=== PATIENT | male | born 1985 | race Caucasian/White ===

== ENCOUNTER 2017-02-15 23:56 | Emergency (ER) | payer SELFPAY ==
[2017-02-16 00:12] VITALS: TEMP 97.9; O2SAT 96
[2017-02-16] MEDS ORDERED: CHLORHEXIDINE GLUCONATE 4 % 15 ML UD TOP ONE (00:13)
--- NOTE | 2017-02-16 00:24 | RAD ---
Procedure: XR FOOT 3 OR MORE VIEWS Exam Date: 02/16/2017 Ordering Provider: Mary Martinez Clinical Indication: fall injury to right foot Comparison: None FINDINGS: No fracture or dislocation. Articular surfaces of the right foot are normal. No lytic or sclerotic lesions. No radiopaque foreign body. No subcutaneous gas evident. IMPRESSION: 1. No acute fracture or dislocation of the right foot. Electronically signed by: Octaviano Pritchett MD 02/16/2017 12:23 AM CDT
[2017-02-16] MEDS ORDERED: LIDOCAINE 1% W/ EPINEPHRINE 20 ML VIAL INJ ONE (00:26)
[2017-02-16] MEDS ORDERED: NEOMYCIN-BACITRACIN-POLYMYXIN 0.9 GM UD TOP ONE (00:51)
[2017-02-16] MEDS ORDERED: HYDROcodone 5MG/APAP 325MG 1 EA TAB PO ONE (00:52)
[2017-02-16] MEDS ORDERED: HYDROcodone 5MG/APAP 325MG 1 EA TAB ONE (00:52)
--- NOTE | 2017-02-16 00:57 | ED.PDOC ---
History of Present Illness - General Chief Complaint: Laceration Stated Complaint: right foot injury c laceration Time Seen by Provider: 02/16/17 00:26 Source: patient, RN notes reviewed, Vital Signs reviewed Exam Limitations: no limitations - History of Present Illness Initial Comments: Patient comes in with c/o cuts to the top of his foot. Reports he cut his foot on a rock. Timing/Duration: just prior to arrival Severity: mild Location: feet - Dorsum of right foot Improving Factors: nothing Worsening Factors: movement Associated Symptoms: denies symptoms Allergies/Adverse Reactions: Allergies NO KNOWN ALLERGY Allergy (Verified 02/16/17 00:12) Home Medications: Ambulatory Orders NK [NK] 02/16/17 Review of Systems - Review of Systems Constitutional: States: no symptoms reported Respiratory: States: no symptoms reported Cardiology: States: no symptoms reported Musculoskeletal: States: no symptoms reported Skin: States: see HPI Neurological: States: no symptoms reported All other Systems: No Change from Baseline Past Medical History (General) - Patient Medical History Hx Seizures: No Hx Stroke: No Hx Dementia: No Hx Asthma: No Hx of COPD: No Hx Cardiac Disorders: No Hx Congestive Heart Failure: No Hx Pacemaker: No Hx Hypertension: No Hx Thyroid Disease: No Hx Diabetes: No Hx Gastroesophageal Reflux: No Hx Renal Disease: No Hx Cancer: No Hx of HIV: No Hx Hepatitis C: No Hx MRSA: No - Vaccination History Hx Tetanus, Diphtheria Vaccination: Yes - 2 yrs Hx Influenza Vaccination: No Hx Pneumococcal Vaccination: No - Social History Hx Tobacco Use: Yes Hx Chewing Tobacco Use: No Hx Alcohol Use: Yes Hx Substance Use: No Hx Substance Use Treatment: No Hx Depression: No Feels Threatened In Home Enviroment: No Feels Threatened In a Relationship: No Hx Physical Abuse: No Hx Emotional Abuse: No Hx Suspected Abuse: No - Female History Patient : No Family Medical History - Family History Mother Family History: Unknown Physical Exam - Physical Exam General Appearance: Alert, Comfortable, No apparent distress, Well Developed, Well Groomed, Well Hydrated, Well Nourished Cardiovascular/Chest: normal peripheral pulses Respiratory: no respiratory distress Extremity: normal range of motion, normal capillary refill Neurologic: no motor/sensory deficits, alert, normal mood/affect, oriented x 3 Skin Exam: warm/dry, normal color Skin Problem Location: lower extremities - R foot: 3.5cm flap on dorsal aspect of mid foot. 4 small 1cm superficial lacerations over dorsal MTP joints. Comments: Vital Signs 02/16/17 00:05 Temperature 97.9 F Pulse Rate [ 89 monitor] Respiratory 18 Rate Blood Pressure 144/75 [Left Arm] O2 Sat by Pulse 96 Oximetry Procedures - Laceration/Wound Repair Right Dorsal Foot Wound Length (cm): 3.5 - 4 1cm lacerations Wound's Depth, Shape: flap Wound Explored: no foreign body removed Betadine Prep?: No - soaked in saline & hibiclens Anesthesia: Lidocaine w/ Epi Volume Anesthetic (cc's): 1.5 Wound Debrided: minimal Wound Repaired With: sutures, dermabond Suture Size/Type: 4:0 Number of Sutures: 5 - 5 sutures on flap laceration, Dermabond applied over 4 1cm superficial lacerations Layer Closure?: No Sterile Dressing Applied?: Yes Departure - Departure Clinical Impression: Laceration of right foot excluding toes without complication Qualifiers: Encounter type: initial encounter Qualified Code(s): S91.311A - Laceration without foreign body, right foot, initial encounter ICD-10 Supporting Text: 5 lacerations on dorsum of foot. Time of Disposition: 00:59 Disposition: Discharge to Home or Self Care Condition: Good Departure Forms: ED Discharge - Pt. Copy, Patient Portal Self Enrollment Instructions: DI for Laceration Repair -- Simple, DI for Laceration Repair With Dermabond Diet: resume usual diet Activity: increase activity as tolerated Referrals: Sasha Oro NP [Primary Care Provider] - 1-2 Weeks Home Medications: Ambulatory Orders NK [NK] 02/16/17 Additional Instructions: Keep wounds covered and protected while in work boots Follow up in 7-10 days for suture removal. Apply antibiotic ointment twice daily - only to sutured wounds
[2017-02-16 01:06] VITALS: BP 132/72
[2017-02-16] MEDS ORDERED: NEOMYCIN-BACITRACIN-POLYMYXIN 0.9 GM UD TOP SCH (09:00)
== END 2017-02-16 01:06 | disposition home or self-care (01) ==
LOC: ER 23:56
DX: S91.311A Laceration without foreign body, right foot, initial encounter (principal); Z87.891 Personal history of nicotine dependence; W45.8XXA Other foreign body or object entering through skin, initial encounter; Y92.9 Unspecified place or not applicable

== ENCOUNTER 2020-04-26 23:27 | Emergency (ER) | payer SELFPAY ==
[2020-04-26] MEDS ORDERED: SODIUM CHLORIDE 0.9% 1000ML 1,000 ML IVS ONE (23:46)
[2020-04-26] MEDS ORDERED: MORPHINE SULFATE INJ 10 MG/ML VIAL IV ONE (23:46)
--- NOTE | 2020-04-26 23:49 | ED.PDOC ---
History of Present Illness - General Chief Complaint: Abdominal Pain Stated Complaint: lower ab pain/distended onset 3.5-4HR Time Seen by Provider: 04/26/20 23:28 Information Source: patient, RN notes reviewed, Vital Signs reviewed Exam Limitations: no limitations - History of Present Illness Initial Comments: 34 yo otherwise healthy male comes in with 4 hours of periumbilical pain that radiates to his back. no n/v/d. no black or bloody bm. pain constant. feels bloated. Review of Systems - Review of Systems Constitutional: Denies: chills, fever EENTM: Denies: blurred vision, throat pain, mouth pain Respiratory: Denies: cough, short of breath, stridor Cardiology: Denies: chest pain, palpitations, syncope Gastrointestinal/Abdominal: States: abdominal pain. Denies: constipation, diarrhea, nausea, vomiting Genitourinary: Denies: dysuria, frequency Musculoskeletal: States: back pain. Denies: joint swelling, muscle pain Neurological: Denies: headache, numbness, paresthesia, seizure Endocrine: Denies: increased urine, unexplained weight gain, unexplained weight loss Hematologic/Lymphatic: Denies: easy bleeding, easy bruising Past Medical History (General) - Patient Medical History Hx Seizures: No Hx Stroke: No Hx Dementia: No Hx Asthma: No Hx of COPD: No Hx Cardiac Disorders: No Hx Congestive Heart Failure: No Hx Pacemaker: No Hx Hypertension: No Hx Thyroid Disease: No Hx Diabetes: No Hx Gastroesophageal Reflux: No Hx Renal Disease: No Hx Cancer: No Hx of HIV: No Hx Hepatitis C: No Hx MRSA: No Surgical History: no surgical history - Vaccination History Hx Tetanus, Diphtheria Vaccination: Yes Hx Influenza Vaccination: No Hx Pneumococcal Vaccination: No - Social History Hx Tobacco Use: Yes Hx Chewing Tobacco Use: No Hx Alcohol Use: Yes Hx Substance Use: No Hx Substance Use Treatment: No Hx Depression: No Hx Physical Abuse: No Hx Emotional Abuse: No Hx Suspected Abuse: No - Female History Patient : No Family Medical History - Family History Mother Family History: Unknown Physical Exam - Physical Exam General Appearance: Alert, Comfortable, No apparent distress, Well Developed, Well Groomed, Well Hydrated, Well Nourished Eyes, Ears, Nose, Throat Exam: PERRL/EOMI, normal ENT inspection Neck: non-tender, full range of motion, supple, normal inspection Respiratory: chest non-tender, lungs clear, normal breath sounds, no respiratory distress, no accessory muscle use Cardiovascular/Chest: normal peripheral pulses, no edema, no gallop, no JVD, no murmur, tachycardia Peripheral Pulses: 2+ Gastrointestinal/Abdominal: normal bowel sounds, non tender, soft, no organomegaly, no pulsatile mass Rectal Exam: deferred Back Exam: normal inspection, no CVA tenderness, no vertebral tenderness Extremity: normal range of motion, non-tender, normal inspection, no pedal edema, no calf tenderness, normal capillary refill Neurologic: applications consultant II-XII nml as tested, no motor/sensory deficits, alert, normal mood/affect, oriented x 3 Skin Exam: normal color, warm/dry Progress - Progress Progress: 04/27/20 00:54 partial ddx: appendicitis, gastroenteritis, pancreatitis, stone, uti, gallstones. patient given IVF, toradol and mylanta. Also given morphine. Pain improved. The data reviewed when caring for this patient included: nurse notes, prior records, etc. The history and assessments from nurses notes were reviewed and considered, and the patient's home medication list was also reviewed and considered. My assessment and the results of testing completed here in the ED were discussed with the patient/family. All questions were answered, and they express understanding of my assessment and the plan. They have been instructed to return if their symptoms worsen, and have been asked to follow up with their primary care physician to recheck today's presenting complaint. Strict abdominal return precautions given. Alexus Gonzalez DO #[id number] Departure - Departure Clinical Impression: Nephrolithiasis Abdominal pain Qualifiers: Abdominal location: periumbilical Qualified Code(s): R10.33 - Periumbilical pain Time of Disposition: 00:49 Disposition: Discharge to Home or Self Care Departure Forms: ED Discharge - Pt. Copy, Patient Portal Self Enrollment Instructions: DI for Abdominal Pain-Adult, Kidney Stones in Adults, Acute Abdomen (Belly Pain), Adult (DC) Activity: increase activity as tolerated Referrals: Sasha Oro NP [Primary Care Provider] - 1-5 Days Home Medications: Ambulatory Orders NK 02/16/17
[2020-04-27 00:34] VITALS: O2SAT 100
--- NOTE | 2020-04-27 00:47 | CT ---
EXAM DESCRIPTION: Abdomen/Pelvis w/Contrast CLINICAL HISTORY: 34 years Male abd pain COMPARISON: None TECHNIQUE: CT of the abdomen and pelvis [with] intravenous contrast. All CT scans at this facility use dose modulation, iterative reconstruction, and/or weight based dosing when appropriate to reduce radiation dose to as low as reasonably achievable. FINDINGS: Lung bases are clear Small hiatal hernia. Abdomen: Stomach:Within normal limits Liver:No focal lesions. Mild periportal edema. No intrahepatic ductal distention. Gallbladder:Nondistended Pancreas:Within normal limits Spleen:Within normal limits Right kidney:No hydronephrosis. 5 mm stone in the right kidney. No focal lesion. Left kidney:No hydronephrosis. 2 mm stone in the left kidney. No focal lesion. Adrenal glands:Within normal limits Vascular structures:Within normal limits Nodes:No lymphadenopathy by size criteria Pelvis: Small bowel:No significant distention. Appendix:Within normal limits Colon:No distention or acute pericolonic edema. No free intraperitoneal fluid or air. Bones: No acute bone findings. Lumbosacral transitional anatomy with lumbarization of S1. Bladder: Unremarkable. No pelvic mass or adenopathy. IMPRESSION: 1. Bilateral nephrolithiasis as detailed above. No hydronephrosis. 2. Nonspecific mild periportal edema. Electronically signed by: Duane Ferguson MD 04/27/2020 12:45 AM WELDING MACHINE [employer]
[2020-04-27] MEDS ORDERED: KETOROLAC TROMETHAMINE INJ 30 MG/ML VIAL IV ONE (00:49)
[2020-04-27] MEDS ORDERED: ALUM & MAG HYDROX-SIMETHICONE 30 ML UD PO ONE (00:53)
[2020-04-27 01:03] VITALS: BP 116/73; TEMP 97.9
== END 2020-04-27 01:01 | disposition home or self-care (01) ==
LOC: ER 23:27
DX: N20.0 Calculus of kidney (principal); Z87.891 Personal history of nicotine dependence
CPT/HCPCS: 74177; 80053; 81001; 83690; 85025; J1885; J2270; J7030